=== PATIENT | female | born 1980 | race Hispanic/Latino ===

== ENCOUNTER 2018-12-31 10:07 | Emergency (ER) | payer OTHER ==
[2018-12-31 10:10] VITALS: BMI 33.0
[2018-12-31 10:11] VITALS: BP 178/98; PULSE 77; RESP 16; TEMP 98.2; O2SAT 99
[2018-12-31] MEDS ORDERED: Amoxicillin-Clav 875-125 mg Tab PO STA (11:05)
--- NOTE | 2018-12-31 11:54 | ED PDOC ---
HPI: General Adult Time Seen by Provider: 12/31/18 10:23 Chief Complaint (Nursing): Bite Chief Complaint (Provider): Bite History Per: Patient History/Exam Limitations: no limitations Additional Complaint(s): 38 y/o female presents to the ED complaining of dog bite to her right hand. Patient states she was walking her dog when she encounter another dog who bite her on the right dorsal hand. She report a 3 small area of skin break on her dominate hand. Patient states there was minimal bleeding at scene with mild pain. She does not know the status of vaccination of the other dog and no way to get that information. PMD: none provided Past Medical History Reviewed: Historical Data, Nursing Documentation, Vital Signs Vital Signs: Last Vital Signs Temp 98.2 F 12/31/18 10:10 Pulse 77 12/31/18 10:10 Resp 16 12/31/18 10:10 BP 178/98 H 12/31/18 10:10 Pulse Ox 99 12/31/18 10:10 Primary Care Provider: FAMILY PROVIDER,NO - Medical History PMH: Hypothyroidism - Surgical History Surgical History: Other surgeries: ACL repair. - Social History Ex-Smoker (has not smoked in the last 12 months): Yes - Home Medications Home Medications: Ambulatory Orders Medication Instructions Recorded Amoxicillin/Clavulanate [Augmentin 1 tab PO BID #14 tab 12/31/18 875 MG-125 MG] - Allergies Allergies/Adverse Reactions: Allergies Allergy/AdvReac Type Severity Reaction Status Date / Time No Known Allergies Allergy Verified 12/31/18 10:16 Review of Systems ROS Statement: Except As Marked, All Systems Reviewed And Found Negative Musculoskeletal: Positive for: Hand Pain (right) Physical Exam - Reviewed Nursing Documentation Reviewed: Yes Vital Signs Reviewed: Yes - Physical Exam Extremity: Positive for: Normal ROM (3 small abrasion with minimal skin exposure. ), Capillary Refill (less than 2 seconds), Swelling (Right hand.), Other (Neurovascular intact 2+ radial impulse.) - ECG O2 Sat by Pulse Oximetry: 99 Medical Decision Making Medical Decision Making: Time:1104 Impression: Plan: -Augmentin 875mg -Rabies immune globin -Rabies Vaccine 1102: Gave patient antibiotics for the bite, infection profalux, clean wound and cover pabstrin. Check for rabies. 1305: Patient is going to decline rabies shot at this time. States independent trader are looking into it and going to find out from the owners when she get home today. If she finds out dog is not immunized she will come back immediately. Patient understand the risk failing to get rabies treatment. Patient will get amend first does and will be discharge. Will get Hand x-ray. Scribe Attestation: Documented by Bev Liu, acting as a scribe for Pam Gar. Provider Scribe Attestation: All medical record entries made by the Scribe were at my direction and personally dictated by me. I have reviewed the chart and agree that the record accurately reflects my personal performance of the history, physical exam, medical decision making, and the department course for this patient. I have also personally directed, reviewed, and agree with the discharge instructions and disposition. Disposition - Clinical Impression Clinical Impression: Animal bite wound - Disposition Condition: IMPROVED Additional Instructions: follow up with your primary doctor (or new doctor) in 1 week for evaluation of wound return to the ED with any worsening or concerning symptoms Prescriptions: Amoxicillin/Clavulanate [Augmentin 875 MG-125 MG] 1 tab PO BID #14 tab Instructions: Animal Bites (DC) Forms: [employer] ([place])
[2018-12-31] MEDS ORDERED: Amoxicillin-Clav 875-125 mg Tab PO ONE (13:11)
[2018-12-31] MEDS ORDERED: Bacitracin 500 Units/gm Oint Foilpak UD ONE (13:20)
--- NOTE | 2018-12-31 15:26 | RAD ---
Date of service: 12/31/2018 PROCEDURE: Radiographs of the right hand HISTORY: Pain COMPARISON: None. FINDINGS: Three views were obtained BONES: Bone alignment and mineralization are normal. There is no acute displaced fracture or bone destruction. JOINTS: The joint spaces are preserved. SOFT TISSUES: There is severe soft tissue swelling in the 1st web space. No evidence for radiopaque foreign body. OTHER FINDINGS: None. IMPRESSION: No acute displaced fracture or dislocation. No bone destruction. Severe soft tissue swelling in the 1st web space. No evidence of radiopaque foreign body.
== END 2018-12-31 13:28 | disposition home or self-care (01) ==
LOC: H.ER 10:07
DX: S61.451A Open bite of right hand, initial encounter (principal); W54.0XXA Bitten by dog, initial encounter; Y93.K1 Activity, walking an animal; E03.9 Hypothyroidism, unspecified